=== PATIENT | female | born 2005 | race Caucasian/White ===

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

== ENCOUNTER 2024-07-25 07:40 | Emergency (ER) | payer BC, MEDICAID, SELFPAY ==
[2024-07-25 07:46] VITALS: BP 120/78; PULSE 98; RESP 17; TEMP 36.5; O2SAT 100; BMI 16.7
--- NOTE | 2024-07-25 08:25 | ED_ITS ---
HPI - 2 General: Chief complaint: Vaginal Bleeding Stated complaint: 6wks preg bleeding Time Seen by Provider: 07/25/24 07:56 History of Present Illness: 18-year-old female at estimated 6 weeks gestation based off her LMP and a home test. She began having vaginal bleeding with passing small clots and some mild pelvic cramping. It is already slowed down. It August of this year she had a section due to preeclampsia near-term. She has recovered well she did have some seizures with that episode. Date of Last Menstrual Period: 06/14/24 Associated symptoms: Deny abdominal pain or dysuria Related Data Home Medications Medication Instructions Recorded Confirmed prenat.vits,albin,[id number] 1 tab PO DAILY 02/07/23 07/25/24 Allergies Allergy/AdvReac Type Severity Reaction Status Date / Time sertraline [From Zoloft] AdvReac hives Verified 10/18/23 14:34 Review of Systems 2 Const: Denies: fever(s) or chills Card: Denies: chest pain Resp: Denies: dyspnea GI: Denies: abdominal pain : Denies: dysuria, urinary frequency or urinary urgency Musc: Denies: neck pain or back pain Skin/Breast: Denies: rash PFSH ED 2 PFSH: Medical History No pertinent past medical history neghx: htn,dm,thyroid,dvt/pe PCP: None Surgical History No pertinent past surgical history Family History Mother Hypertension Grandmother Hypertension maternal Stroke Grandfather Stroke Denies family history of Colon cancer Ovarian cancer Diabetes Heart disease Hyperlipidemia Breast cancer Uterine cancer Thyroid disease Female Reproductive History: Date of last menstrual period: 06/14/24 Physical Exam 2 Const: COMMON NORMALS: no acute distress GENERAL APPEARANCE: cooperative and comfortable ORIENTATION/CONSCIOUSNESS: Yes awake, Yes oriented to person, Yes oriented to place and Yes oriented to time HENMT: COMMON NORMALS: normocephalic, atraumatic and hearing grossly normal bilaterally HEAD & SCALP: normocephalic and atraumatic Resp: COMMON NORMALS: normal respiratory effort, No retractions, No use of accessory muscles and clear to auscultation bilaterally AUSCULTATION: clear to auscultation bilaterally Cardio: COMMON NORMALS: regular rate, regular rhythm and No murmurs present (Cardio) RATE: regular rate RHYTHM: regular rhythm GI: COMMON NORMALS: Soft to palpation and No hepatosplenomegaly present A USCULTATION: Yes normoactive bowel sounds PALPATION: Yes Soft to palpation, No Tenderness to palpation present (GI), No Guarding due to palpation present (GI) and Yes No hepatosplenomegaly present Extremity: COMMON NORMALS: normal to inspection, capillary refill normal, no clubbing, cyanosis or edema, no calf tenderness and no pedal edema Neuro: SENSORIUM/ORIENTATION: Yes oriented to person, Yes oriented to place and Yes oriented to time Skin: COMMON NORMALS: no rashes or lesions noted GENERAL SKIN EXAM: no rashes or lesions noted Course 2 Vital Signs: Vital signs: Vital Signs Temperature 97.7 F 07/25/24 07:46 Pulse Rate 78 07/25/24 10:40 Respiratory Rate 17 07/25/24 07:46 Blood Pressure 120/70 07/25/24 10:40 Pulse Oximetry 99 07/25/24 10:40 Oxygen Delivery Me thod Room Air 07/25/24 07:46 MDM - OB/Uterine Contractions Medical Decision Making . Beta-hCG is less than 9. Discussed findings with patient will repeat beta- hCG at the [facility] in 3 to 4 days. Beta-hCG is very low at 8.66 if she had tested herself at home positive a little over a week ago with a home positive test. Discussed she most likely has had a miscarriage we will have to confirm with a repeat beta-hCG. Medical Records I reviewed the patient's medical records. Lab Data I reviewed the patient's lab results. 07/25/24 08:28 Laboratory Results WBC 9.16 10^3/uL (4.5-13.0) 07/25/24 08:28 RBC 4.09 10^6/uL (3.85-5.65) 07/25/24 08:28 Hgb 10.30 g/dL (12.4-14.8) L 07/25/24 08:28 Hct 33.8 % (36-47) L 07/25/24 08:28 MCV 82.6 fl (85-98) L 07/25/24 08: MCH 25.2 pg (27-33) L 07/25/24 08: MCHC 30.5 g/dL (30-55) 07/25/24 08: RDW 15.8 % (12.1-15.1) H 07/25/24 08:28 Plt Count 240 10^3/cmm (157-399) 07/25/24 08: MPV 10.5 fL (7.4-10.4) H 07/25/24 08:28 Neut % (Auto) 78.1 % 07/25/24 08: Lymph % (Auto) 14.1 % 07/25/24 08: [place] % (Auto) 5.9 % 07/25/24 08: Eos % (Auto) 1.2 % 07/25/24 08: Baso % (Auto) 0.4 % 07/25/24 08: Neut # (Auto) 7.15 10^3/uL (1.8-8.0) 07/25/24 08:28 Lymph # (Auto) 1.3 10^3/uL (1.5-6.5) L 07/25/24 08:28 [place] # (Auto) 0.5 10^3/uL (0.2-0.9) 07/25/24 08:28 Eos # (Auto) 0.1 10^3/uL (0.0-0.8) 07/25/24 08: Baso # (Auto) 0.0 10^3/uL (0.0-0.1) 07/25/24 08:28 Nucleated RBC % (auto) 0 % 07/25/24 08: Nucleated RBCs # 0.0 /100WBC 07/25/24 08:28 Ser , Semi-Qnt 8.66 mIU/mL 07/25/24 08: Blood Type A Negative 07/25/24 08:28 Rho(D) Type Rh negative 07/25/24 08:28 No radiology studies performed this visit Discharge Plan Discharge Patient Disposition: Home Clinical Impression: Threatened miscarriage in early Condition: Stable Prescriptions: No Action prenat.vits,albin,[id number] Tablet 1 tab PO DAILY Discharge Orders: Discharge ED (Routine); Ordered 07/25/24 Ordered By: Sarbjit Cosme Discharge Diet: Regular Discharge Activity: Increase activity as tolerated Patient Instructions: Opioid Safety, Pain Management Activity Restrictions/Additional Instructions: Thank you for choosing [facility] for your healthcare needs today. It is very important that you follow up as instructed or that you return to the Emergency Department should you have concerns or if your condition changes or worsens in any way. You were seen in the emergency room with complaint of vaginal bleeding. Your beta-hCG is very low suspect that you may have already miscarried. You will need to have a repeat serum quantitative beta-hCG and this 3 days to confirm. You likely will continue to have some intermittent bleeding spotting and cramping. You were noted to be Rh- and did receive RhoGAM while you are in the emergency room. Coding Level of Care Code ED Cyber Software Engineer for Elidia Sehikh
[2024-07-25 08:38] LABS: Basophils % 0.4 %; Eosinophils # 0.1 10^3/uL (0.0-0.8); Eosinophils % 1.2 %; Hematocrit 33.8 % (36-47); Lymphocytes # 1.3 10^3/uL (1.5-6.5); Lymphocytes % 14.1 %; Mean Corpuscular HGB Conc 30.5 g/dL (30-55); Mean Corpuscular Hemoglobin 25.2 pg (27-33); Mean Corpuscular Volume 82.6 fl (85-98); Mean Platelet Volume 10.5 fL (7.4-10.4); Monocytes # 0.5 10^3/uL (0.2-0.9); Monocytes % 5.9 %; Neutrophils # 7.15 10^3/uL (1.8-8.0); Neutrophils % 78.1 %; Nucleated Red Blood Cells % 0 %; Platelet Count 240 10^3/cmm (157-399); Red Blood Count 4.09 10^6/uL (3.85-5.65); Red Cell Distribution Width 15.8 % (12.1-15.1); White Blood Count 9.16 10^3/uL (4.5-13.0)
[2024-07-25 09:03] LABS: HCG Quantitative 8.66 mIU/mL
[2024-07-25] MEDS: rho(d) immune globulin 1,500 unit Syringe 1500 UNIT IM (10:09)
[2024-07-25 10:16] VITALS: PULSE 78; O2SAT 100
[2024-07-25 10:40] VITALS: BP 120/70; PULSE 78; O2SAT 99
== END 2024-07-25 10:41 | disposition home or self-care (01) ==
PROVIDERS: Emergency Provider Family Medicine
DX: O20.0 Threatened abortion (principal); Z3A.00 Weeks of gestation of pregnancy not specified
CPT/HCPCS: 84702; 85025; 86900; 96372; 99283; J2790

== ENCOUNTER → 2025-01-13 13:24 | Outpatient (BNVA) | payer BC, MEDICAID, SELFPAY | DX: R39.9 Unspecified symptoms and signs involving the genitourinary system (principal) | CPT/HCPCS: 81000 ==

== ENCOUNTER 2025-05-15 18:32 | Emergency (ER) | payer BC, MEDICAID, SELFPAY ==
--- OUTSIDE RECORDS SUMMARY | 2021-11-01 19:00 | XMS_ITS | Continuity of Care Document ---
Author Organization [facility] Address [address] [place] [address] Phone Care Team Providers Care Epic Prelude Analyst Name Role Phone Unavailable Unavailable Unavailable Procedures Procedure Date ECG INTERP ONLY ECHO, TT W/SPECTRAL AND COLOR DOPPLER Ma Advance Directives Directive Yes / No Effective Date File Name No Information Encounters Encounter Description Practice Location Reason(s) For Visit Diagnoses Date Provider Providers Copied on Encounter [facility], [address] [address], [place], [address], tel:[phone] [facility] No Information No Information Referring Provider: TORIN Travis, [address] [place] [address], [address]. tel:[phone] Family History Family Member Type Diagnosis Age At Onset No Information Payers Payer name Insurance type Covered alliance party ID Authoriza tion(s) [facility] [id number] [id number] Social History Type Description Quantity Date Captured Comments Sex Female Smoking Status No Information Chief Complaint And Reason For Visit No Information History Of Present Illness Encounter Date Complaint History Of Prese nt Illness No Information Instructions Date Instruction Additional Infor mation No Information Assessments Type Assessment Date No Information
[2025-05-15 18:57] VITALS: BP 105/67; PULSE 93; RESP 14; TEMP 36.7; O2SAT 99; BMI 17.0
[2025-05-15 20:31] LABS: Hematocrit 32.6 % (36-47); Hemoglobin 10.00 g/dL (12.4-14.8); Mean Corpuscular HGB Conc 30.7 g/dL (30-55); Mean Corpuscular Hemoglobin 23.1 pg (27-33); Mean Corpuscular Volume 75.3 fl (85-98); Nucleated Red Blood Cells % 0 %; Platelet Count 229 10^3/cmm (157-399); Red Blood Count 4.33 10^6/uL (3.85-5.65); White Blood Count 5.57 10^3/uL (4.5-13.0)
[2025-05-15 20:31] LABS: Glucose Urine UA Negative (Normal); Nitrate Urine Negative (Negative); Specific Gravity, Urine 1.026 (1.005-1.030)
[2025-05-15 20:37] LABS: Add Urine Microscopic? YES
--- NOTE | 2025-05-15 20:42 | ED_ITS ---
HPI - Female Genitourinary 2 General: Chief complaint: Vaginal Bleeding Stated complaint: thinking having a miscarrage Time Seen by Provider: 05/15/25 19:55 History of Present Illness: Patient is a 19-year-old female G3, P1, H 2-year-old son, 6 weeks , started having pink-tinged discharge without utilizing pad over the last 8 days, with intercourse 4-5 days ago, with abrupt onset of increased bleeding, requiring a pad, and lower abdomen on the right side cramping. Her last resulted in miscarriage. No issue with her son that is 2 years old Associated symptoms: Reports vaginal discharge; Deny abdominal pain, headache(s) or nausea Date of Last Menstrual Period: 03/22/25 Related Data Previous Rx's ?Medication ?Instructions ?Recorded amoxicillin 500 mg tablet 500 mg PO BID 10 days #20 ta bs 01/13/25 Allergies Allergy/AdvReac Type Severity Reaction Status Date / Time sertraline (From Zoloft) AdvReac hives Verified 05/15/25 19:01 Review of Systems 2 General: Reports: 10 or more systems reviewed and unremarkable except in HPI and below Const: Denies: fever(s), chills, body aches, change in appetite, change in weight or fatigue Resp: Denies: dyspnea, productive cough, non-productive cough, wheezing, stridor, hemoptysis or chest congestion GI: Denies: abdominal pain, nausea, vomiting, hematemesis, coffee ground emesis, dysphagia, heartburn, diarrhea, constipation, bloating, change in bowel habits, hematochezia or melena : Reports: vaginal bleeding, vaginal discharge and pelvic pain; Denies: flank pain, difficulty voiding, dysuria, urinary frequency, urinary urgency, urinary hesitancy, urinary incontinence, hematuria, genital lesions, genital pruritis or dysmenorrhea Musc: Denies: neck pain or back pain Skin/Breast: Denies: rash, pruritus, erythema or sores Neuro: Denies: headache(s), numbness in extremities, weakness in extremities, sensory changes, lack of coordination, difficulty walking or Slurred speech present Psych: Denies: anxiety or depression Endo: Denies: polyuria or polydipsia Jaime/Lymph: Denies: easy bruising or easy bleeding PFSH ED 2 PFSH: Medical History (Updated 05/15/25 @ 22:35 by AGUILAR Dean) No pertinent past medical history neghx: htn,dm,thyroid,dvt/pe PCP: None Surgical History No pertinent past surgical history Family History Mother Hypertension Grandmother Hypertension maternal Stroke Grandfather Stroke Denies family history of Colon cancer Ovarian cancer Diabetes Heart disease Hyperlipidemia Breast cancer Uterine cancer Thyroid disease Social History Smoking and tobacco/nicotine status: never used tobacco/nicotine Female Reproductive History: Date of last menstrual period: 03/22/25 Physical Exam 2 Const: COMMON NORMALS: no acute distress, average body habitus, patient oriented x3, no limitations, healthy appearing, alert and well nourished EXAM LIMITATIONS: no altered mental status GENERAL APPEARANCE: cooperative, comfortable, well kempt, well developed, in distress and well hydrated; not anxious, not ill appearing and not frail appearing O RIENTATION/CONSCIOUSNESS: Yes oriented to person, Yes oriented to place and Yes oriented to time Neck/C-Spine: COMMON NORMALS: full ROM and supple GENERAL: Yes normal visual inspection and Yes trachea midline Resp: COMMON NORMALS: normal respiratory effort and clear to auscultation bilaterally EFFORT & INSPECTION: Yes able to speak in complete sentences, No respiratory distress and No Actively coughing AUSCULTATION: clear to auscultation bilaterally and normal I/E ratio Cardio: COMMON NORMALS: regular rate and regular rhythm PALPATION: normal PMI RATE: regular rate RHYTHM: regular rhythm GI: COMMON NORMALS: Normal to inspection, nondistended, normoactive bowel sounds present, Soft to palpation, non-tender and No hepatosplenomegaly present PALPATION: Yes Soft to palpation and Yes No hepatosplenomegaly present : COMMON NORMALS: Yes no CVA tenderness BLADDER/KIDNEY EXAM: Yes no CVA tenderness Back/Pelvis: COMMON NORMALS: no CVA tenderness Neuro: COMMON NORMALS: patient oriented x3, CN's II-XII intact bilaterally, moves all extremities, no focal motor deficits and no sensory deficits noted SENSORIUM/ORIENTATION: Yes alert, Yes oriented to person, Yes oriented to place, Yes oriented to time and Yes Orientation impaired SPEECH: speech normal G AIT: Yes Normal gait present MOTOR EXAM: 5/5 motor strength present throughout Psych: COMMON NORMALS: Normal thought process present APPEARANCE: Yes grossly normal and Yes well kempt ACTIVITY/MOTOR BEHAVIOR: Yes appropriate eye contact MOOD & AFFECT: Yes euthymic mood THOUGHT PROCESS: Normal thought process present THOUGHT CONTENT: Yes Normal thought content present Course 2 Vital Signs: Vital signs: Vital Signs Temperature 98.1 F 05/15/25 18:57 Pulse Rate 93 05/15/25 18:57 Respiratory Rate 14 05/15/25 18:57 Blood Pressure 105/67 05/15/25 18:57 Pulse Oximetry 99 05/15/25 18:57 MDM - Female Medical Decision Making Patient is 19-year-old female presents with bleeding, heart rate of 71, smaller than gestational age, subchorionic bleed, with symptoms consistent with inability to carry full-term . This is most likely incomplete . Ovary flow was noted. Patient is to follow-up with her doctor as scheduled on Sunday. All of her questions answered her satisfaction. She will return to the ED with further issues Lab Data 05/15/25 20:17 05/15/25 20:17 Radiology Impressions Obstetrics Ultrasound 05/15/25 20:43 IMPRESSION: Early intrauterine , biometry as above. Laboratory Results WBC 5.57 10^3/uL (4.5-13.0) 05/15/25 20:17 RBC 4.33 10^6/uL (3.85-5.65) 05/15/25 20:17 Hgb 10.00 g/dL (12.4-14.8) L 05/15/25 20:17 Hct 32.6 % (36-47) L 05/15/25 20:17 MCV 75.3 fl (85-98) L 05/15/25 20:17 MCH 23.1 pg (27-33) L 05/15/25 20:17 MCHC 30.7 g/dL (30-55) 05/15/25 20:17 RDW 15.9 % (12.1-15.1) H 05/15/25 20:17 Plt Count 229 10^3/cmm (157-399) 05/15/25 20:17 MPV 10.0 fL (7.4-10.4) 05/15/25 20:17 Neut % (Auto) 58.0 % 05/15/25 20:17 Lymph % (Auto) 33.9 % 05/15/25 20:17 [place] % (Auto) 6.1 % 05/15/25 20:17 Eos % (Auto) 1.4 % 05/15/25 20:17 Baso % (Auto) 0.4 % 05/15/25 20:17 Neut # (Auto) 3.23 10^3/uL (1.8-8.0) 05/15/25 20:17 Lymph # (Auto) 1.9 10^3/uL (1.5-6.5) 05/15/25 20:17 [place] # (Auto) 0.3 10^3/uL (0.2-0.9) 05/15/25 20:17 Eos # (Auto) 0.1 10^3/uL (0.0-0.8) 05/15/25 20:17 Baso # (Auto) 0.0 10^3/uL (0.0-0.1) 05/15/25 20:17 Nucleated RBC % (auto) 0 % 05/15/25 20:17 Nucleated RBCs # 0.0 /100WBC 05/15/25 20:17 Sodium 136 mmol/L (136-145) 05/15/25 20:17 Potassium 4.2 mmol/L (3.5-5.1) 05/15/25 20:17 Chloride 102 mmol/L (98-107) 05/15/25 20:17 Carbon Dioxide 22 mmol/L (22-29) 05/15/25 20:17 Anion Gap 16.2 (5-19) 05/15/25 20:17 BUN 16 mg/dL (6-20) 05/15/25 20:17 Creatinine 0.6 mg/dL (0.5-0.9) 05/15/25 20:17 GFR Calculation 127.5 mL/min (90-130) 05/15/25 20:17 Glucose 91 mg/dL (65-115) 05/15/25 20:17 Calculated Osmolality 283 mOsm/kg (285-295) L 05/15/25 20:17 Calcium 9.5 mg/dL (8.5-10.5) 05/15/25 20:17 Total Bilirubin 0.2 mg/dL (0.15-1.2) 05/15/25 20:17 AST 21 U/L (0-32) 05/15/25 20:17 ALT 13 U/L (0-33) 05/15/25 20:17 Alkaline Phosphatase 56 U/L (35-105) 05/15/25 20:17 Total Protein 8.1 g/dL (6.6-8.7) 05/15/25 20:17 Albumin 5.0 g/dL (3.5-5.2) 05/15/25 20:17 Globulin 3.1 g/dL (1.3-4.6) 05/15/25 20:17 Ser , Semi-Qnt 69056.00 mIU/mL 05/15/25 20:17 Urine Color Yellow (Yellow) 05/15/25 20:14 Urine Appearance Cloudy (CLEAR) A 05/15/25 20:14 Urine pH 5.5 (5-7) 05/15/25 20:14 Ur Specific [place] 1.026 (1.005-1.030) 05/15/25 20:14 Urine Protein 3+ (Negative) A 05/15/25 20:14 Urine Glucose (UA) Negative (Normal) 05/15/25 20:14 Urine Ketones Trace (Negative) 05/15/25 20:14 Urine Blood 3+ (Negative) A 05/15/25 20:14 Urine Nitrate Negative (Negative) 05/15/25 20:14 Urine Bilirubin Negative (Negative) 05/15/25 20:14 Urine Urobilinogen 1.0 mg/dL (Negative) 05/15/25 20:14 Ur Leukocyte Esterase Trace (Negative) A 05/15/25 20:14 Urine RBC >100 /hpf (0-2) H 05/15/25 20:14 Urine WBC 21-50 /hpf (0-5) H 05/15/25 20:14 Ur Squamous Epith Cells 11-20 /hpf (0-5) H 05/15/25 20:14 Amorphous Sediment Not Reportable 05/15/25 20:14 Urine Bacteria 1+ /hpf (NONE) H 05/15/25 20:14 Hyaline Casts 9.51 /lpf 05/15/25 20:14 Blood Type A Negative 05/15/25 20:17 Rho(D) Type Rh negative 05/15/25 20:17 Antibody Screen Negative 05/15/25 20:17 All radiology interpretation(s) finalized by discharge Discharge Plan Discharge Patient Disposition: Home Clinical Impression: Incomplete , Threatened Subchorionic hemorrhage Qualifiers: Trimester: first trimester Qualified Code(s): O20.8 - Other hemorrhage in early Rh negative status during Qualifiers: Trimester: third trimester Qualified Code(s): O26.893 - Other specified related conditions, third trimester Condition: Stable Prescriptions: No Action amoxicillin 500 mg tablet 500 mg PO BID 10 Days Qty: 20 0RF Discharge Orders: Discharge ED (Routine); Ordered 05/15/25 Ordered By: Lisa Polanco Referrals: Naomie Cuellar MD [Primary Care Provider, [facility]] Discharge Diet: Usual diet Discharge Activity: Resume usual activity Patient Instructions: Miscarriage (ED), Patient Portal & Ning Instructions Activity Restrictions/Additional Instructions: - Pelvic rest (no sex, no tampons) - Follow-up with your doctor on Sunday and note that you needed hCG repeated. -Return to ED if you have worsening pain, cramping, fever greater 100.4 ?F. -Your hCG level was 30,676. We do expect this to go down. -This was a subchorionic bleed - I am truly sorry for your loss. Please return to ED if you need further assistance. Print Language: Yi Coding Level of Care Code ED Tissue Rewinder for Elidia Sheikh
--- NOTE | 2025-05-15 20:43 | USR_ITS ---
PROCEDURE INFORMATION: Exam: US First Trimester, Transabdominal and US , Transvaginal Exam date and time: 05/15/2025 9:43 PM Age: 19 years old Clinical indication: Lmp or gestational age (in weeks): 7w6d per patient. 5w5d per crl; Antepartum complications; Bleeding; ; Additional info: Bleeding, cramping LABS AND CLINICAL REPORTS: Last menstrual period start date: Unknown Gestational age (Established): 7 w 6 d Estimated due date (Established): 12/26/2025 TECHNIQUE: Imaging protocol: Real-time transabdominal obstetrical ultrasound of the maternal pelvis and a first trimester , less than 14 weeks 0 days, with image documentation. Transvaginal imaging was used for better evaluation of the fetus, adnexa, and/or cervix. COMPARISON: [place] [id number] 07/04/2023 11:24 AM FINDINGS: GESTATION: Gestation: Yolk sac measures 5 mm. [place]-rump length 0.24 cm. Embryo/ cardiac activity (BPM): 71 bpm Extra-embryonic membranes/Placenta: Questionable tiny subchorionic bleed, difficult to visualize given early gestation. Amniotic/Chorionic fluid: Amniotic and extra-amniotic fluid are normal for gestational age. BIOMETRY: Gestational age (AUA): Mean sac diameter: 1.58 cm. EGA (MSD) is 6 w 3 d MATERNAL: Uterus: Unremarkable. Cervix: Cervical length measures 3.6 cm. Trace free fluid in the cervix. Right ovary/adnexa: No significant abnormality. Left ovary/adnexa: No significant abnormality. Intraperitoneal space: No intraperitoneal free fluid. US/US OB <=14 wk fetus w transvag IMPRESSION: Early intrauterine , biometry as above.
[2025-05-15 20:51] LABS: Alanine Aminotransferase 13 U/L (0-33); Albumin Level 5.0 g/dL (3.5-5.2); Alkaline Phosphatase 56 U/L (35-105); Anion Gap 16.2 (5-19); Aspartate Amino Transferase 21 U/L (0-32); Blood Urea Nitrogen 16 mg/dL (6-20); Calcium 9.5 mg/dL (8.5-10.5); Carbon Dioxide 22 mmol/L (22-29); Chloride 102 mmol/L (98-107); Creatinine Clr Calc Pharmacy 119.9492; Globulin 3.1 g/dL (1.3-4.6); Glucose 91 mg/dL (65-115); Osmolality Calculated 283 mOsm/kg (285-295); Potassium 4.2 mmol/L (3.5-5.1); Sodium 136 mmol/L (136-145); Total Protein 8.1 g/dL (6.6-8.7)
[2025-05-15 20:57] LABS: UA Slide Review UA Slide Review Perf
== END 2025-05-15 22:53 | disposition home or self-care (01) ==
PROVIDERS: Student in an Organized Health Care Education/Training Program; Emergency Provider Physician Assistant; PCP Family Medicine
DX: O03.4 Incomplete spontaneous abortion without complication (principal); O26.891 Other specified pregnancy related conditions, first trimester; Z67.91 Unspecified blood type, Rh negative; Z3A.01 Less than 8 weeks gestation of pregnancy
CPT/HCPCS: 36415; 76801; 76817; 80053; 81001; 84702; 85025; 86850; 86900; 96372; 99284; J2790

== ENCOUNTER 2025-05-19 20:27 | Emergency (ER) | payer BC, MEDICAID, SELFPAY ==
--- OUTSIDE RECORDS SUMMARY | 2021-11-01 19:00 | XMS_ITS | Continuity of Care Document ---
Author Organization [facility] Address [address] [place] [address] Phone Care Team Providers Care Muffler Installer Name Role Phone Unavailable Unavailable Unavailable Procedures Procedure Date ECG INTERP ONLY ECHO, TT W/SPECTRAL AND COLOR DOPPLER Ma Advance Directives Directive Yes / No Effective Date File Name No Information Encounters Encounter Description Practice Location Reason(s) For Visit Diagnoses Date Provider Providers Copied on Encounter [facility], [address] [address], [place], [address], tel:[phone] [facility] No Information No Information Referring Provider: TORIN Travis, [address] [place] [address], [address]. tel:[phone] Family History Family Member Type Diagnosis Age At Onset No Information Payers Payer name Insurance type Covered alliance party ID Authoriza tion(s) [place] [facility] [[email or web address] [id number] [facility] [id number] Social History Type Description Quantity Date Captured Comments Sex Female Smoking Status No Information Chief Complaint And Reason For Visit No Information History Of Present Illness Encounter Date Complaint History Of Prese nt Illness No Information Instructions Date Instruction Additional Infor mation No Information Assessments Type Assessment Date No Information
[2025-05-19 20:37] VITALS: BP 125/76; PULSE 89; RESP 14; TEMP 36.8; O2SAT 99
[2025-05-19 21:24] LABS: Hematocrit 28.4 % (36-47); Hemoglobin 8.80 g/dL (12.4-14.8); Mean Corpuscular HGB Conc 31.0 g/dL (30-55); Mean Corpuscular Hemoglobin 23.4 pg (27-33); Mean Corpuscular Volume 75.5 fl (85-98); Nucleated Red Blood Cells % 0 %; Platelet Count 199 10^3/cmm (157-399); Red Blood Count 3.76 10^6/uL (3.85-5.65); White Blood Count 7.93 10^3/uL (4.5-13.0)
--- NOTE | 2025-05-19 22:53 | ED_ITS ---
HPI - 2 General: Chief complaint: Vaginal Bleeding Stated complaint: Had Miscarriage\Still Bleeding Time Seen by Provider: 05/19/25 21:28 Source: patient Mode of arrival: ambulatory Limitations: no limitations History of Present Illness: 19-year-old female is currently 6 weeks states she was seen here 4 days ago had an ultrasound showed that she is likely going to miscarry. She states that since she has had heavier bleeding today states she has been passing some clots with heavier bleeding. She has some mild abdominal cramping denies any lightheadedness. Denies any worse improved factors Associated symptoms: Reports abdominal pain Related Data Previous Rx's ?Medication ?Instructions ?Recorded amoxicillin 500 mg tablet 500 mg PO BID 10 days #20 ta bs 01/13/25 Allergies Allergy/AdvReac Type Severity Reaction Status Date / Time sertraline (From Zoloft) AdvReac hives Verified 05/19/25 20:41 Review of Systems 2 GI: Reports: abdominal pain : Reports: vaginal bleeding PFSH ED 2 PFSH: Medical History No pertinent past medical history neghx: htn,dm,thyroid,dvt/pe PCP: None Surgical History No pertinent past surgical history Family History Mother Hypertension Grandmother Hypertension maternal Stroke Grandfather Stroke Denies family history of Colon cancer Ovarian cancer Diabetes Heart disease Hyperlipidemia Breast cancer Uterine cancer Thyroid disease Social History Smoking and tobacco/nicotine status: never used tobacco/nicotine Physical Exam 2 Const: COMMON NORMALS: no acute distress HENMT: COMMON NORMALS: normocephalic and atraumatic HEAD & SCALP: n ormocephalic and atraumatic Eye: COMMON NORMALS: conjunctivae normal CONJUNCTIVA: Yes conjunctivae normal Chest: COMMONS NORMALS: normal inspection of the chest Resp: COMMON NORMALS: normal respiratory effort GI: COMMON NORMALS: non-tender INSPECTION: Yes normal to inspection : OTHER: Cervix closed no products or clot stuck in the cervix minimal blood in vaginal vault Extremity: COMMON NORMALS: normal to inspection Course 2 Vital Signs: Vital signs: Vital Signs Temperature 98.3 F 05/19/25 20:37 Pulse Rate 89 05/19/25 20:37 Respiratory Rate 14 05/19/25 20:37 Blood Pressure 125/76 05/19/25 20:37 Pulse Oximetry 99 05/19/25 20:37 Oxygen Delivery Me thod Room Air 05/19/25 20:37 MDM - OB/Uterine Contractions Medical Decision Making Patient presents here with a miscarriage. Her quantitative is went down she states she did pass 1 large clot while here in the hospital before her pelvic exam and her bleeding is slowed. On my pelvic exam she had no products or clot at her cervix her bleeding has slowed did give her a dose of measle processed all she is hemodynamically stable did go over her labs with her informed her she needs to follow-up with her OB in 2 to 4 days and return if she has any heavier bleeding she understands agrees to plan Medical Records I reviewed the patient's medical records. Lab Data I reviewed the patient's lab results. 05/19/25 21:13 Laboratory Results WBC 7.93 10^3/uL (4.5-13.0) 05/19/25 21:13 RBC 3.76 10^6/uL (3.85-5.65) L 05/19/25 21:13 Hgb 8.80 g/dL (12.4-14.8) L 05/19/25 21:13 Hct 28.4 % (36-47) L 05/19/25 21:13 MCV 75.5 fl (85-98) L 05/19/25 21:13 MCH 23.4 pg (27-33) L 05/19/25 21:13 MCHC 31.0 g/dL (30-55) 05/19/25 21:13 RDW 16.3 % (12.1-15.1) H 05/19/25 21:13 Plt Count 199 10^3/cmm (157-399) 05/19/25 21:13 MPV 9.6 fL (7.4-10.4) 05/19/25 21:13 Neut % (Auto) 64.6 % 05/19/25 21:13 Lymph % (Auto) 28.0 % 05/19/25 21:13 [place] % (Auto) 5.5 % 05/19/25 21:13 Eos % (Auto) 1.1 % 05/19/25 21:13 Baso % (Auto) 0.4 % 05/19/25 21:13 Neut # (Auto) 5.12 10^3/uL (1.8-8.0) 05/19/25 21:13 Lymph # (Auto) 2.2 10^3/uL (1.5-6.5) 05/19/25 21:13 [place] # (Auto) 0.4 10^3/uL (0.2-0.9) 05/19/25 21:13 Eos # (Auto) 0.1 10^3/uL (0.0-0.8) 05/19/25 21:13 Baso # (Auto) 0.0 10^3/uL (0.0-0.1) 05/19/25 21:13 Nucleated RBC % (auto) 0 % 05/19/25 21:13 Nucleated RBCs # 0.0 /100WBC 05/19/25 21:13 Ser , Semi-Qnt 9457.00 mIU/mL 05/19/25 21:13 No radiology studies performed this visit Discharge Plan Discharge Patient Disposition: Home Clinical Impression: Miscarriage Condition: Stable Prescriptions: No Action amoxicillin 500 mg tablet 500 mg PO BID 10 Days Qty: 20 0RF Discharge Orders: Discharge ED (Routine); Ordered 05/19/25 Ordered By: Sharon Glez Referrals: Naomie Cuellar MD [Primary Care Provider, [facility]] - 1-3 days Discharge Diet: Advance as tolerated Discharge Activity: Resume usual activity Patient Instructions: Miscarriage (ED) Print Language: Pashto Coding Level of Care Code ED Grain Handler for Elidia Sheikh
[2025-05-19] MEDS: HYDROcodone-acetaminophen 5-325 mg Tablet 1 TAB PO (23:28)
== END 2025-05-19 23:33 | disposition home or self-care (01) ==
PROVIDERS: Emergency Provider Emergency Medicine; PCP Family Medicine
DX: O03.9 Complete or unspecified spontaneous abortion without complication (principal)
CPT/HCPCS: 36415; 84702; 85025; 99283; 99291; J9999

== ENCOUNTER → 2025-05-30 12:02 | Outpatient (BNVA) | payer BC, SELFPAY | PROVIDERS: PCP Family Medicine; Visit Provider Nurse Practitioner | DX: J02.9 Acute pharyngitis, unspecified (principal) | CPT/HCPCS: 87880 ==

== ENCOUNTER 2025-08-05 10:37 | Outpatient (CLI) | payer BC, SELFPAY | END 2025-08-05 10:38 | disposition home or self-care (01) | LOC: LAB 10:42 | PROVIDERS: PCP Family Medicine; Visit Provider Family Medicine | DX: N96 Recurrent pregnancy loss (principal) | CPT/HCPCS: 84702 ==